=== PATIENT | female | born 1995 | race Caucasian/White ===

== ENCOUNTER 2018-10-06 12:38 | Day surgery (SDC) | payer BC ==
[~2018-10-06] VITALS: Ht 149.9 cm; Wt 47.1 kg
[~2018-10-06 12:38] MED LIST: PROPOFOL 200 MG INJ ONE
[2018-10-06 14:43] VITALS: Ht 149.9 cm; Wt 47.1 kg
[2018-10-06] MEDS ORDERED: VITAMIN PO (14:53)
[2018-10-06] MEDS ORDERED: HORMONE PILL (14:53)
--- NOTE | 2018-10-06 15:46 | PREAC ---
Date/Time of Note Date/Time of Note DATE: 10/06/18 TIME: 15:46 Anesthesia Eval and Record Evaluation Time Pre-Procedure Interview DATE: 10/06/18 TIME: 15:46 Age 23 Sex female NPO: 8 hrs Preoperative diagnosis abnormal liver tests, vomiting Planned procedure egd Past Medical History Past Medical History: None Surgery & Anesthesia Issues No known issue Meds Anticoagulation: No Beta Jaja within 24 hr: No Reason Beta Jaja not given: Pt. not on B-Jaja Reported Medications [Hormone Pill] No Conflict Check 10/06/18 [Vitamin] No Conflict Check, PO 10/06/18 Meds reviewed: Yes Allergies Coded Allergies: No Known Allergy (Unverified , 10/06/18) Allergies Reviewed: Yes Labs/Studies Labs Reviewed: Reviewed by anesthesiologist test: Negative Pre-procedure Exam Airway: Adequate mouth opening, Adequate thyromental dist Mallampati: Mallampati II Teeth: Normal Lung: Normal Heart: Normal ASA Physical Status ASA physical status: 1 Emergency: None Planned Anesthetic General/MAC: MAC Pre-operative Attestations Prior to commencing anesthesia and surgery, the patient was re-evaluated, there was verification of: *The patient's identity *The results of appropriate recent lab work and preoperative vital signs *The above evaluation not changing prior to induction *Anesthetic plan, risk benefits, alternative and complications discussed with patient/family; questions answered; patient/family understands, accepts and wishes to proceed. Jorge Alberto Davis M.D. Oct 06, 2018 15:46
[2018-10-06] MEDS ORDERED: LIDOCAINE 2% (SDV) 5 ML INJ ONE (15:47)
[2018-10-06] MEDS ORDERED: FENTAnyl 50 MCG/ML VIAL ONE (15:47)
[2018-10-06] MEDS ORDERED: PROPOFOL 40 ML ONE (15:47)
[2018-10-06] MEDS ORDERED: TRIMETHOBENZAMIDE 100 MG/ML VIAL IM PRN (16:00)
[2018-10-06] MEDS ORDERED: LABETALOL HCL 20MG INJ IV PRN (16:00)
[2018-10-06] MEDS ORDERED: IPRATROPIUM (NEB) 0.5 MG/2.5 ML AMP HHN PRN (16:00)
[2018-10-06] MEDS ORDERED: DIPHENHYDRAMINE 50 MG INJ IV PRN (16:00)
[2018-10-06] MEDS ORDERED: hydrALAzine 20 MG INJ IV PRN (16:00)
[2018-10-06] MEDS ORDERED: ALBUTEROL 0.083% (NEB) 2.5 MG/3 ML AMP HHN PRN (16:00)
[2018-10-06] MEDS ORDERED: OXYCODONE/ACETAMINOPHEN (5/325) TAB PO PRN ×2 (16:00)
[2018-10-06] MEDS ORDERED: EPHEDrine SULFATE 50 MG/5 ML SYG IV PRN (16:00)
[2018-10-06] MEDS ORDERED: MIDAZOLAM 1 MG/ML 2 ML INJ IV PRN (16:00)
[2018-10-06] MEDS ORDERED: FENTAnyl 50 MCG/ML VIAL IV PRN ×3 (16:00)
[2018-10-06] MEDS ORDERED: HYDROmorphONE 1 MG/5 ML IV SYRINGE IV PRN ×3 (16:00)
[2018-10-06] MEDS ORDERED: ONDANSETRON 4 MG INJ IV PRN (16:00)
[2018-10-06] MEDS ORDERED: MEPERIDINE 25 MG INJ IV PRN (16:00)
--- NOTE | 2018-10-06 16:09 | PAC ---
Date/Time of Note Date/Time of Note DATE: 10/06/18 TIME: 16:09 Post-Anesthesia Notes Post-Anesthesia Note Last documented vital signs HR;78 RR;13 BP;116/65 T;98 SPO2;100 Activity: WNL Respiratory function: WNL Cardiovascular function: WNL Mental status: Baseline Pain reasonably controlled: Yes Hydration appropriate: Yes Nausea/Vomiting absent: Yes Jorge Alberto Davis M.D. Oct 06, 2018 16:09
[2018-10-06 16:47] VITALS: BP 105/63; RESP 14
== END 2018-10-06 17:11 | disposition home or self-care (01) ==
LOC: GIL 12:38
PROVIDERS: ATTEND Internal Medicine Gastroenterology
DX: R10.9 Unspecified abdominal pain (principal)
CPT/HCPCS: 43239; 84703; 88305; 88312; J3010; Z7610